=== PATIENT | female | born 1955 | race Caucasian/White ===

== ENCOUNTER 2017-08-17 20:34 | Emergency (ER) | payer SELFPAY ==
[~2017-08-17] VITALS: Ht 162.6 cm; Wt 85.3 kg
[2017-08-17 20:39] VITALS: Ht 162.6 cm; Wt 85.3 kg
== END 2017-08-18 00:17 | disposition left against medical advice (07) ==
LOC: E/R 20:34
DX: Z53.21 Procedure and treatment not carried out due to patient leaving prior to being seen by health care provider (principal)
CPT/HCPCS: 93005